=== PATIENT | male | born 1965 | race Caucasian/White ===

== ENCOUNTER 2017-08-28 10:05 | Day surgery (SDC) | payer MEDICARE, OTHER ==
--- NOTE | 2017-08-28 11:09 | PCM.PREANE ---
Preanesthetic Assessment - Anesthesia/Transfusion/Family Hx Anesthesia History: Prior Anesthesia Without Reaction Family History of Anesthesia Reaction: No Transfusion History: No Prior Transfusion(s) - Review of Systems General: No Symptoms Pulmonary: No Symptoms Cardiovascular: No Symptoms Gastrointestinal: Abdominal Pain Neurological: No Symptoms Other: Reports: Diabetes - Physical Assessment NPO Status Date: 08/27/17 NPO Status Time: 00:00 Pulse: 96 O2 Sat by Pulse Oximetry: 99 Respiratory Rate: 18 Blood Pressure: 159/78 Temperature: 36.6 C Vital Signs: Last Vital Signs Temp 36.6 C 08/28/17 10:11 Pulse 96 08/28/17 10:11 Resp 18 08/28/17 10:11 BP 159/78 H 08/28/17 10:11 Pulse Ox 99 08/28/17 10:11 Height: 1.83 m Weight: 93.894 kg ASA Class: 2 Mental Status: Alert & Oriented x3 Airway Class: Mallampati = 1 Dentition: Reports: Normal Dentition, [place](s) Thyro-Mental Finger Breadths: 3 Mouth Opening Finger Breadths: 3 ROM/Head Extension: Full Lungs: Clear to Auscultation, Normal Respiratory Effort Cardiovascular: Regular Rate, Regular Rhythm, No Murmurs - Allergies Allergies/Adverse Reactions: Allergies Allergy/AdvReac Type Severity Reaction Status Date / Time metformin Allergy Diarrhea Verified 08/28/17 10:19 raw vegetable Allergy Shortness Verified 08/28/17 10:19 of Breath - Blood Blood Available: No Product(s) Available: None - Anesthesia Plan Pre-Op Medication Ordered: Beta Arleen Beta Arleen: Metoprolol Med Last Dose Date: 08/27/17 Med Last Dose Time: 07:00 - Acknowledgements Anesthesia Type Planned: MAC Pt an Appropriate Candidate for the Planned Anesthesia: Yes Alternatives and Risks of Anesthesia Discussed w Pt/Guardian: Yes Pt/Guardian Understands and Agrees with Anesthesia Plan: Yes PreAnesthesia Questionnaire Cardiovascular History: Reports: High Cholesterol, Hypertension Gastrointestinal History: Reports: GERD Genitourinary History: Reports: Renal Calculus Musculoskeletal History: Reports: Fracture Neurological History: Reports: Other (See Below) Other Neuro History: 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 Takes medications for this Psychiatric History: Reports: Depression Endocrine/Metabolic History: Reports: Diabetes, Type II Hematologic History: Reports: Other (See Below) Other Hematologic History: Lyme disease - Past Surgical History GI Surgical History: Reports: None Male Surgical History: Reports: None Musculoskeletal Surgical History: Reports: None - SUBSTANCE USE Smoking Status *Q: Never Smoker Recreational Drug Use History: No - HOME MEDS Home Medications: Home Meds Aspirin [Halfprin] 81 mg PO DAILY 08/28/17 [History] Baclofen 10 mg PO TID PRN 08/28/17 [History] Canagliflozin [Invokana] 300 mg PO DAILY 08/28/17 [History] Cetirizine [ZyrTEC] 10 mg PO DAILY 08/28/17 [History] Donepezil HCl [Aricept] 10 mg SL BEDTIME 08/28/17 [History] Escitalopram [Lexapro] 20 mg PO DAILY 08/28/17 [History] Glimepiride [Amaryl] 8 mg PO WITHBREAKFAST 08/28/17 [History] Hydrochlorothiazide 25 mg PO DAILY 08/28/17 [History] Ibuprofen 200 mg PO Q4H PRN 08/28/17 [History] Insulin Glarg,Human.Rec.Analog [Lantus] 10 unit SUBCUT DAILY 08/28/17 [History] Lidocaine 2% [Xylocaine 2% Jelly] 1 applic TOP DAILY PRN 08/28/17 [History] Liraglutide [Victoza 3-Heron] 1.2 mg SQ DAILY 08/28/17 [History] Lisinopril [Prinivil] 20 mg PO DAILY 08/28/17 [History] Mirtazapine [Remeron] 15 mg PO BEDTIME 08/28/17 [History] Multivitamin [Multivitamins] 1 tab PO DAILY 08/28/17 [History] Nitroglycerin [Rectiv] 1 inch BID 08/28/17 [History] Omeprazole 40 mg PO PCBREAKFAST 08/28/17 [History] Rosuvastatin [Crestor] 10 mg PO BEDTIME 08/28/17 [History] Sildenafil [Viagra] 50 mg PO DAILY PRN 08/28/17 [History] Zolpidem [Ambien] 5 mg PO BEDTIME PRN 08/28/17 [History] amLODIPine Besylate [Amlodipine Besylate] 1 tab PO DAILY 08/28/17 [History] traMADol [Ultram] 50 mg PO Q8H PRN 08/28/17 [History]
[2017-08-28] MEDS ORDERED: Midazolam 1 MG/ML 2 ML SDV ONE (11:27)
[2017-08-28] MEDS ORDERED: metroNIDAZOLE/Normal Saline 500 MG in Premix Bag 1 BAG IV SCH (11:27)
[2017-08-28] MEDS ORDERED: cefOXitin 2 GM in Premix Bag 1 BAG IV SCH (11:27)
[2017-08-28] MEDS ORDERED: Ondansetron 4 MG/2 ML SDV ONE (11:27)
[2017-08-28] MEDS ORDERED: Propofol 200 MG/20 ML SDV ONE ×2 (11:27→12:03)
[2017-08-28] MEDS ORDERED: fentaNYL 250 MCG/5 ML SDV ONE (11:28)
[2017-08-28] MEDS ORDERED: Lidocaine 1% 4 ML ONE (11:28)
[2017-08-28] MEDS ORDERED: Metoprolol Tartrate 5 MG/5 ML SDV ONE (11:31)
[2017-08-28] MEDS ORDERED: Ketorolac 30 MG/ML SDV ONE (11:39)
[2017-08-28] MEDS ORDERED: HYDROmorphone 0.5 MG/0.5 ML Syringe ONE (11:39)
[2017-08-28] MEDS ORDERED: Lactated Ringers 1,000 ML IV SCH (11:40)
[2017-08-28] MEDS ORDERED: Lidocaine 1% 30 ML SDV ONE (11:44)
--- NOTE | 2017-08-28 12:18 | PCM.OPNOTE ---
- General Post-Op/Procedure Note Date of Surgery/Procedure: 08/28/17 Operative Procedure(s): I&D minal rectal abscess Pre Op Diagnosis: minal rectal abscess Post-Op Diagnosis: Same Anesthesia Technique: MAC Primary Surgeon: Stefano Zhou EBL in mLs: 10 Complications: None Condition: Good
[2017-08-28] MEDS ORDERED: Lactated Ringers 1,000 ML ONE (12:23)
--- NOTE | 2017-08-28 21:28 | OR ---
DATE OF OPERATION: 08/28/2017 SURGEON: Stefano Zhou MD PREOPERATIVE DIAGNOSIS: Perirectal abscess. POSTOPERATIVE DIAGNOSIS: Perirectal abscess. OPERATION PERFORMED: Incision and drainage under IV sedation. FINDINGS: An abscess that was prominent on the right side posteriorly and extended to the left side posteriorly in a horseshoe fashion. DESCRIPTION OF PROCEDURE: The patient was taken to the operating room, placed in a supine position, connected to monitoring equipment, given IV sedation and antibiotics, placed in lithotomy position. The perianal area was then prepped with Betadine and draped off in a sterile fashion. Induration could be felt in the right posterior perianal skin and the skin was then anesthetized with 1% Xylocaine. An incision was made and pus was entered. Incision was enlarged and index finger was inserted tracing the abscess over to the left posterior area. An additional incision was made in the left posterior incision and the abscess cavity was entered. Gerardo drain was then placed into this cavity entering the left side and exiting the left side and sutured to the skin with 2-0 chromic suture. The patient tolerated the procedure. There was minimal bleeding, approximately 10 mL. The patient was sent to recovery room in a stable condition. ANESTHESIA: ESTIMATED BLOOD LOSS: MMODAL /[id number]
--- NOTE | 2017-08-28 21:32 | HP ---
DATE OF ADMISSION: 08/28/2017 HISTORY OF PRESENT ILLNESS: This is a 52-year-old male who came into Dr. Naylor with onset of pain in mainly the rectal area, some on the left. It has been of 10 days' duration. He was seen in the walk-in clinic because of the severity of the pain and he felt that it was a fissure. He then came in after the weekend to see Dr. Naylor, who diagnosed a perirectal abscess. The patient's pain was mainly on the right side, although noted Dr. Naylor' notes had left in the exam. He had a history of explosive diarrhea. His last colonoscopy last year showed a small polyp. He has had intermittent fever and chills, some nausea with this and he has an uncontrolled diabetes with blood sugars around 280s to 300. CURRENT MEDICATIONS: For medication reconciliation form. PAST MEDICAL HISTORY: Type 2 diabetes, hypertension, and mixed hyperlipidemia. Had a history of Lyme disease in the past and nephrolithiasis. FAMILY HISTORY: His mother has diabetes and father has hypertension. SOCIAL HISTORY: Never smoked and no alcohol use. REVIEW OF SYSTEMS: No chest pain or shortness of breath, cough, hoarseness, wheezing, fainting, weakness, numbness, or convulsions. Does have rectal pain and a little constipation. PHYSICAL EXAMINATION: GENERAL: Reveals a pulse 88, temperature 99, blood pressure is 142/66. HEENT: Eyes; sclerae white. Extraocular muscle motion normal. Oral cavity, healthy mucous membranes with mouth and tongue. NECK: Supple. No nodes. No thyromegaly. ABDOMEN: Soft. No tenderness, guarding, or rebound. EXTREMITIES: Upper and lower extremities, no angulation deformities. RECTUM: Examination of the rectal area shows tenderness in the posterior right area. No digital exam was done because of the pain. PSYCHIATRIC: Normal. SKIN: Normal. NEUROLOGIC: Normal. ASSESSMENT: Perirectal abscess on the right, which is distinct from Dr. Naylor' note. PLAN: For I and D. Discussed this with the patient the risks and the complications. He understands and consents, and will start antibiotics. MMODAL /[id number]
--- NOTE | 2017-08-30 07:28 | HP ---
DATE OF ADMISSION: 08/28/2017 ADDENDUM: The patient has diabetes and history of chills and fevers. He is considered immunocompromised and thus this is an emergency procedure, need to proceed immediately to the operating room for incision and drainage, and we will preop with antibiotics. MMODAL /[id number]
== END 2017-08-28 13:11 | disposition home or self-care (01) ==
LOC: JD.ED 10:05 → JD.SDS 11:32
PROVIDERS: ATTEND Surgery
DX: K61.1 Rectal abscess (principal); I10 Essential (primary) hypertension; E10.9 Type 1 diabetes mellitus without complications; Z88.8 Allergy status to other drugs, medicaments and biological substances; Z79.82 Long term (current) use of aspirin; Z91.018 Allergy to other foods; Z79.4 Long term (current) use of insulin; Z79.899 Other long term (current) drug therapy
CPT/HCPCS: 46040; 82962; J0694; J1170; J1885; J2250; J2405; J3010; J7120; 99285; J2704; J3490

== ENCOUNTER 2017-09-29 14:48 | Emergency (ER) | payer MEDICARE, OTHER ==
--- NOTE | 2017-09-29 15:54 | EDM.PDOC ---
ED HPI GENERAL MEDICAL PROBLEM - General Chief Complaint: General Stated Complaint: ANAL FISSURE INFECTED Time Seen by Provider: 09/29/17 15:01 Source of Information: Reports: Patient, Old Records History Limitations: Reports: No Limitations - History of Present Illness INITIAL COMMENTS - FREE TEXT/NARRATIVE: Medical records indicate that the patient underwent incision and drainage of a right-sided perianal abscess on 08/28/2017, per Dr. Zhou. According to the operative report, the abscess was on the right posterior aspect, but tracked to the left posterior aspect in a "U" shape. An additional incision was made to the left posterior perianal region, and a Bruin drain was placed in the left incision, exiting the right (the operative report indicates that the drain was placed entering the left side and exiting the left side, but this may be a typographical error). The patient states that he followed up with Dr. Zhou yesterday, and all was well. Yesterday afternoon, however, after seeing Dr. Zhou, the patient developed chills and generalized body aches. Today he again has perianal pain and tenderness. Here in the ED, the patient is afebrile. Dr. Ritter of the office today. The patient's PCP is Dr. Keyla Heredia. Rectal Pain Score (Numeric/FACES): 2 - Related Data Allergies Allergy/AdvReac Type Severity Reaction Status Date / Time metformin Allergy Diarrhea Verified 08/28/17 10:19 raw vegetable Allergy Shortness Verified 08/28/17 10:19 of Breath Home Meds: Home Meds Aspirin [Halfprin] 81 mg PO DAILY 08/28/17 [History] Baclofen 10 mg PO TID PRN 08/28/17 [History] Canagliflozin [Invokana] 300 mg PO DAILY 08/28/17 [History] Cetirizine [ZyrTEC] 10 mg PO DAILY 08/28/17 [History] Donepezil HCl [Aricept] 10 mg SL BEDTIME 08/28/17 [History] Escitalopram [Lexapro] 20 mg PO DAILY 08/28/17 [History] Glimepiride [Amaryl] 8 mg PO WITHBREAKFAST 08/28/17 [History] Hydrochlorothiazide 25 mg PO DAILY 08/28/17 [History] Ibuprofen 200 mg PO Q4H PRN 08/28/17 [History] Insulin Glarg,Human.Rec.Analog [Lantus] 10 unit SUBCUT DAILY 08/28/17 [History] Lidocaine 2% [Xylocaine 2% Jelly] 1 applic TOP DAILY PRN 08/28/17 [History] Liraglutide [Victoza 3-Heron] 1.2 mg SQ DAILY 08/28/17 [History] Lisinopril [Prinivil] 20 mg PO DAILY 08/28/17 [History] Mirtazapine [Remeron] 15 mg PO BEDTIME 08/28/17 [History] Multivitamin [Multivitamins] 1 tab PO DAILY 08/28/17 [History] Nitroglycerin [Rectiv] 1 inch BID 08/28/17 [History] Omeprazole 40 mg PO PCBREAKFAST 08/28/17 [History] Rosuvastatin [Crestor] 10 mg PO BEDTIME 08/28/17 [History] Sildenafil [Viagra] 50 mg PO DAILY PRN 08/28/17 [History] Zolpidem [Ambien] 5 mg PO BEDTIME PRN 08/28/17 [History] amLODIPine Besylate [Amlodipine Besylate] 1 tab PO DAILY 08/28/17 [History] traMADol [Ultram] 50 mg PO Q8H PRN 08/28/17 [History] Sulfamethoxazole/Trimethoprim [Bactrim Ds Tablet] 1 tab PO Q12H #20 tablet 09/29 [Rx] metroNIDAZOLE [Flagyl] 1 tab PO Q8H #30 tab 09/29/17 [Rx] Past Medical History Cardiovascular History: Reports: High Cholesterol, Hypertension Gastrointestinal History: Reports: GERD Genitourinary History: Reports: Renal Calculus Musculoskeletal History: Reports: Back Pain, Chronic, Fracture Neurological History: 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 Zhou) Social & Family History - Family History Family Medical History: Noncontributory - Tobacco Use Smoking Status *Q: Never Smoker Second Hand Smoke Exposure: No - Caffeine Use Caffeine Use: Reports: Soda - Alcohol Use Alcohol Use History: Yes Alcohol Use Frequency: Rarely - Recreational Drug Use Recreational Drug Use: No - Living Situation & Occupation Living situation: Reports: , with Spouse Occupation: Unemployed ED ROS GENERAL - Review of Systems Review Of Systems: ROS reveals no pertinent complaints other than HPI. ED EXAM, GENERAL - Physical Exam Exam: See Below Exam Limited By: No Limitations General Appearance: Alert, WD/WN, No Apparent Distress Rectal (Males) Exam: Other (Mild swelling and tenderness with palpable lump to the posterior right perianal area, consistent with a perianal abscess. Prior linear surgical wounds, each measuring approximately 1.5 cm, located at the 4: 00 and 8:00 positions (with the patient in the dorsolithotomy position), appear to be well-healed.) Course - Vital Signs Last Recorded V/S: Last Vital Signs Temp 37.8 C 09/29/17 16:10 Pulse 92 09/29/17 16:10 Resp 16 09/29/17 16:10 BP 147/92 H 09/29/17 16:10 Pulse Ox 97 09/29/17 16:10 - Orders/Labs/Meds Meds: Medications Discontinued Medications Generic Name Dose Route Start Last Admin Trade Name Freq PRN Reason Stop Dose Admin Metronidazole 500 mg 09/29/17 15:58 09/29/17 16:15 Flagyl PO 09/29/17 15:59 500 mg ONETIME ONE Administration Trimethoprim/Sulfamethoxazole 1 tab 09/29/17 15:58 09/29/17 16:15 Septra Ds PO 09/29/17 15:59 1 tab ONETIME ONE Administration - Re-Assessments/Exams Free Text/Narrative Re-Assessment/Exam: 09/29/17 15:[address] Wyatt at 15:50. Because the patient had a negative exam just yesterday, any abscess that has formed is in its earliest stages. He is therefore recommending conservative management with oral Bactrim and Flagyl, and sitz baths. The patient can then follow-up with Dr. Zhou as an outpatient. Departure - Departure Time of Disposition: 15:58 Disposition: Home, Self-Care 01 Condition: Good Clinical Impression: Perianal abscess - Discharge Information Prescriptions: metroNIDAZOLE [Flagyl] 1 tab PO Q8H #30 tab Sulfamethoxazole/Trimethoprim [Bactrim Ds Tablet] 1 tab PO Q12H #20 tablet Instructions: Perianal Abscess Referrals: Stefano Zhou MD [Physician] - Forms: ED Department Discharge Additional Instructions: You were seen in the emergency room for pain to the anal area, following incision and drainage of a perianal abscess on 08/28/2017. On examination, there is a new perianal abscess to the posterior right area. Your case was discussed with the surgeon Dr. Wyatt. He recommended conservative management including antibiotics and sitz baths. You have been started on the antibiotics Bactrim and Flagyl. Prescriptions for Bactrim and Flagyl [facility], located across the [facility] from the hospital. Take one tablet of Bactrim every 12 hours, starting tomorrow morning, 09/30/2017. Take one tablet of Flagyl every 8 hours, starting midnight , 09/29/2017. Finish both antibiotics, even if you are feeling better, unless told otherwise by Dr. Zhou. Perform sitz baths for approximately 15-20 minutes, 3-5 times a day. Take [id number] ibuprofen, 2-3 tablets (400-600 mg) every 8 hours, with food, as needed for discomfort. Follow-up with Dr. Zhou at the next available appointment. If any other problems, please do not hesitate to return to the ER.
[2017-09-29] MEDS ORDERED: Sulfamethoxazole/Trimethoprim 800-160 MG Tab PO ONE (15:58)
[2017-09-29] MEDS ORDERED: metroNIDAZOLE 500 MG Tab PO ONE (15:58)
== END 2017-09-29 16:12 | disposition home or self-care (01) ==
LOC: JD.ED 14:48
DX: K61.0 Anal abscess (principal); E78.00 Pure hypercholesterolemia, unspecified; I10 Essential (primary) hypertension; K21.9 Gastro-esophageal reflux disease without esophagitis; E11.9 Type 2 diabetes mellitus without complications; Z88.8 Allergy status to other drugs, medicaments and biological substances; Z79.82 Long term (current) use of aspirin; Z79.899 Other long term (current) drug therapy; Z79.4 Long term (current) use of insulin
CPT/HCPCS: 99283; A9270

== ENCOUNTER 2018-10-05 22:25 | Emergency (ER) | payer MEDICARE, OTHER ==
[2018-10-05] MEDS ORDERED: Aspirin 81 MG Tab.Chew PO ONE (22:41)
[2018-10-05] MEDS ORDERED: Nitroglycerin 0.4 MG Tab.SL SL PRN (22:45)
--- NOTE | 2018-10-05 22:51 | EDM.PDOC ---
ED HPI GENERAL MEDICAL PROBLEM - General Chief Complaint: Chest Pain Stated Complaint: chest pain Time Seen by Provider: 10/05/18 22:36 Source of Information: Reports: Patient History Limitations: Reports: No Limitations - History of Present Illness INITIAL COMMENTS - FREE TEXT/NARRATIVE: This is a 53-year-old male. He had onset of centralized chest pain this morning around 11:30 AM that is been waxing and waning pretty much all day. Then about 1 hour ago it started getting much more severe going into his jaw and down his left arm. No diaphoresis but he did have some nausea and vomiting secondary to the pain. He comes to the ER for evaluation. He has a history of insulin-dependent diabetes hypertension and hypercholesterolemia. His initial EKG shows an acute inferior IA with mild possible lateral involvement. Mid-Sternal Chest Pain Score (Numeric/FACES): 9 - Related Data Allergies Allergy/AdvReac Type Severity Reaction Status Date / Time metformin Allergy Diarrhea Verified 10/05/18 22:30 raw vegetable Allergy Shortness Verified 10/05/18 22:30 of Breath Home Meds: Home Meds Aspirin [Halfprin] 81 mg PO DAILY 08/28/17 [History] Baclofen 10 mg PO TID PRN 08/28/17 [History] Canagliflozin [Invokana] 300 mg PO DAILY 08/28/17 [History] Cetirizine [ZyrTEC] 10 mg PO DAILY 08/28/17 [History] Donepezil HCl [Aricept] 10 mg SL BEDTIME 08/28/17 [History] Escitalopram [Lexapro] 20 mg PO DAILY 08/28/17 [History] Glimepiride [Amaryl] 8 mg PO WITHBREAKFAST 08/28/17 [History] Ibuprofen 200 - 600 mg PO Q4H PRN 08/28/17 [History] Lisinopril [Prinivil] 20 mg PO DAILY 08/28/17 [History] Mirtazapine [Remeron] 15 mg PO BEDTIME 08/28/17 [History] Omeprazole 40 mg PO PCBREAKFAST 08/28/17 [History] Rosuvastatin [Crestor] 10 mg PO BEDTIME 08/28/17 [History] Sildenafil [Viagra] 50 mg PO DAILY PRN 08/28/17 [History] Zolpidem [Ambien] 5 mg PO BEDTIME PRN 08/28/17 [History] amLODIPine Besylate [Amlodipine Besylate] 10 mg PO DAILY 08/28/17 [History] hydroCHLOROthiazide [Hydrochlorothiazide] 25 mg PO DAILY 08/28/17 [History] Liraglutide [Victoza] 1.8 mg SQ DAILY 10/05/18 [History] Past Medical History Cardiovascular History: Reports: High Cholesterol, Hypertension Gastrointestinal History: Reports: GERD Other Gastrointestinal History: anal fissure surgery Genitourinary History: Reports: Renal Calculus Musculoskeletal History: Reports: Back Pain, Chronic, Fracture Neurological History: 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 Takes medications for this Psychiatric History: Reports: Anxiety, Depression Endocrine/Metabolic History: Reports: Diabetes, Type II Hematologic History: Reports: Other (See Below) (Lyme disease) Other Hematologic History: Lyme disease - Past Surgical History GI Surgical History: Reports: Colonoscopy, Polypectomy Social & Family History - Family History Family Medical History: Noncontributory - Tobacco Use Smoking Status *Q: Never Smoker - Caffeine Use Caffeine Use: Reports: Soda - Recreational Drug Use Recreational Drug Use: No - Living Situation & Occupation Living situation: Reports: , with Spouse Occupation: Unemployed ED ROS GENERAL - Review of Systems Review Of Systems: See Below Constitutional: Denies: Fever, Chills HEENT: Reports: No Symptoms Respiratory: Denies: Shortness of Breath Cardiovascular: Reports: Chest Pain. Denies: Edema Endocrine: Reports: No Symptoms GI/Abdominal: Reports: Nausea, Vomiting. Denies: Abdominal Pain : Reports: No Symptoms Musculoskeletal: Reports: No Symptoms Skin: Reports: No Symptoms Neurological: Reports: No Symptoms Psychiatric: Reports: No Symptoms ED EXAM, GENERAL - Physical Exam Exam: See Below Exam Limited By: No Limitations General Appearance: Alert, WD/WN, Anxious Eye Exam: Bilateral Eye: Normal Inspection Ears: Normal External Exam Nose: Normal Inspection Throat/Mouth: Normal Inspection, Normal Lips, Normal Voice, No Airway Compromise Head: Normocephalic Neck: Supple Respiratory/Chest: No Respiratory Distress, Lungs Clear, Normal Breath Sounds Cardiovascular: Regular Rate, Rhythm, No Murmur GI/Abdominal: Soft, Non-Tender Back Exam: Full Range of Motion Extremities: Normal Inspection, Normal Range of Motion Neurological: Alert, Oriented Psychiatric: Anxious Skin Exam: Warm, Dry EKG INTERPRETATION EKG Date: 10/05/18 Time: 22:59 EKG Interpretation Comments: EKG shows an acute inferior myocardial infarction with possible lateral involvement. Even though the ST elevation is only about 1-1/2 boxes it still is quite clear on the EKG that he's having a STEMI. Course - Vital Signs Last Recorded V/S: Last Vital Signs Temp 97.3 F 10/05/18 22:30 Pulse 81 10/05/18 22:30 Resp 12 10/05/18 22:30 BP 156/103 H 10/05/18 22:48 Pulse Ox 95 10/05/18 22:30 - Orders/Labs/Meds Orders: Active Orders 24 hr Category Date Time Status Chest 1V Frontal [CR] Stat Exams 10/05/18 22:38 Taken CBC W/O DIFF,HEMOGRAM [HEME] MOTH@0700 Lab 10/08/18 07:00 Ordered CBC W/O DIFF,HEMOGRAM [HEME] MOTH@0700 Lab 10/11/18 07:00 Ordered CBC W/O DIFF,HEMOGRAM [HEME] MOTH@0700 Lab 10/15/18 07:00 Ordered CBC W/O DIFF,HEMOGRAM [HEME] MOTH@0700 Lab 10/18/18 07:00 Ordered CBC W/O DIFF,HEMOGRAM [HEME] MOTH@0700 Lab 10/22/18 07:00 Ordered CBC W/O DIFF,HEMOGRAM [HEME] MOTH@0700 Lab 10/25/18 07:00 Ordered Nitroglycerin [Nitrostat] Med 10/05/18 22:45 Active 0.4 mg SL Q5M PRN Sodium Chloride 0.9% [Normal Saline] 1,000 ml Med 10/05/18 23:15 Active IV ASDIRECTED Tenecteplase [Tnkase] Med 10/05/18 23:00 Active 50 mg IV STAT Medication Orders Sodium Chloride (Normal Saline) 1,000 mls @ 100 mls/hr IV ASDIRECTED JENNIFER Last Admin: 10/05/18 23:07 Dose: 100 mls/hr Nitroglycerin (Nitrostat) 0.4 mg SL Q5M PRN PRN Reason: Chest Pain Last Admin: 10/05/18 22:48 Dose: 0.4 mg Tenecteplase (Tnkase) 50 mg IV STAT JENNIFER; Protocol Last Admin: 10/05/18 23:03 Dose: 50 mg Labs: Laboratory Tests 10/05/18 10/05/18 Range/Units 22:43 22:43 WBC 8.12 (4.23-9.07) K/mm3 RBC 6.67 H (4.63-6.08) M/mm3 Hgb 17.9 H (13.7-17.5) gm/L Hct 52.4 H (40.1-51.0) % MCV 78.6 L (79.0-92.2) fl MCH 26.8 (25.7-32.2) pg MCHC 34.2 (32.2-35.5) g/dl RDW Std Deviation 41.0 (35.1-43.9) fL Plt Count 317 (163-337) K/mm3 MPV 9.1 L (9.4-12.3) fl Neutrophils % (Manual) 57 (40-60) % Band Neutrophils % 1 (0-10) % Lymphocytes % (Manual) 32 (20-40) % Atypical Lymphs % 0 % Monocytes % (Manual) 3 (2-10) % Eosinophils % (Manual) 6 (0.8-7.0) % Basophils % (Manual) 1 (0.2-1.2) Platelet Estimate Adequate Plt Morphology Comment Normal Microcytosis 1+ slight RBC Morph Comment Not Reportable Sodium 139 (136-145) mEq/L Potassium 3.6 (3.5-5.1) mEq/L Chloride 102 (98-107) mEq/L Carbon Dioxide 25 (21-32) mEq/L Anion Gap 15.6 H (5-15) BUN 22 H (7-18) mg/dL Creatinine 1.1 (0.7-1.3) mg/dL Est Cr Clr Drug Dosing 86.22 mL/min Estimated GFR (MDRD) > 60 (>60) mL/min BUN/Creatinine Ratio 20.0 H (14-18) Glucose 280 H (74-106) mg/dL Calcium 9.6 (8.5-10.1) mg/dL Total Bilirubin 0.5 (0.2-1.0) mg/dL AST 18 (15-37) U/L ALT 50 (16-63) U/L Alkaline Phosphatase 103 (46-116) U/L CK-MB (CK-2) 2.8 (0-3.6) ng/ml Troponin I 0.193 H* (0.00-0.056) ng/mL Total Protein 7.3 (6.4-8.2) g/dl Albumin 4.1 (3.4-5.0) g/dl Globulin 3.2 gm/dL Albumin/Globulin Ratio 1.3 (1-2) Meds: Medications Generic Name Dose Route Start Last Admin Trade Name Freq PRN Reason Stop Dose Admin Sodium Chloride 1,000 mls @ 100 mls/hr 10/05/18 23:15 10/05/18 23:07 Normal Saline IV 100 mls/hr ASDIRECTED JENNIFER Administration Nitroglycerin 0.4 mg 10/05/18 22:45 10/05/18 22:48 Nitrostat SL 0.4 mg Q5M PRN Administration Chest Pain Tenecteplase 50 mg 10/05/18 23:00 10/05/18 23:03 Tnkase IV 50 mg STAT JENNIFER Administration Protocol Discontinued Medications Generic Name Dose Route Start Last Admin Trade Name Maira PRN Reason Stop Dose Admin Aspirin 324 mg 10/05/18 22:41 10/05/18 22:44 Aspirin PO 10/05/18 22:42 324 mg ONETIME ONE Administration Clopidogrel Bisulfate 600 mg 10/05/18 22:58 10/05/18 23:07 Plavix PO 10/05/18 22:59 600 mg ONETIME ONE Administration Heparin Sodium (Porcine) Confirm 10/05/18 23:03 10/05/18 23:18 Heparin Sodium Administered 10/05/18 23:04 Not Given Dose 5,000 units .ROUTE .STK-MED ONE Heparin Sodium (Porcine) 4,000 units 10/05/18 23:06 10/05/18 23:08 Heparin Sodium IVPUSH 10/05/18 23:07 4,000 units ONETIME ONE Administration Tenecteplase Confirm 10/05/18 22:56 10/05/18 23:09 Tnkase Administered 10/05/18 22:57 Not Given Dose 50 mg .ROUTE .STK-MED ONE - Radiology Interpretation Free Text/Narrative:: Chest x-ray does not show any acute changes - Re-Assessments/Exams Free Text/Narrative Re-Assessment/Exam: 10/05/18 22:[address] Gill at [facility] regarding the inferior IA acute. We will fly the patient to [place]. In the meantime he wants us to give him 600 of Plavix. The nitroglycerin dropped his blood pressure momentarily but is come back up and we will give him the TNKase just prior to him leaving on the helicopter. 10/05/18 23:11 No troponin was available at the time of his discharge with [facility] to fly to [place] [facility] in [facility]. 10/05/18 23:11 Patient has remained stable other than the dip in his blood pressure from the nitroglycerin and it came back immediately. His chest pain was 9 out of 10 initially and after 1 nitroglycerin dropped down to 1 out of 10 and S1 his blood pressure dropped to 88 systolic but within 5 minutes without a fluid bolus was back up to 1:15 systolic. We held the rest of the nitroglycerin dose. 10/05/18 23:21 Initial troponin is 0.193. The patient is packaged to get in the helicopter. The aspirin, Plavix, heparin and the TNKase have all been given. 10/05/18 23:48 The patient left the ER in good spirits and his monitor at this time showed a normal sinus rhythm. Departure - Departure Time of Disposition: 23:00 Disposition: DC/Tfer to Acute Hospital 02 Reason for Transfer *Q: Primary PCI Indicated Condition: Fair Clinical Impression: Acute inferior myocardial infarction Acute myocardial infarction Qualifiers: Myocardial infarction type: ST elevation myocardial infarction Involved coronary artery: unspecified coronary artery Qualified Code(s): I21.3 - ST elevation (STEMI) myocardial infarction of unspecified site Referrals: Keyla Heredia MD [Primary Care Provider] - ED Communication - ED Communication Date/Time Date: 10/05/18 Time Called: 23:01 - Discussed Case With (1) Discussed Case With (1): Admitting Provider Person/s Notified (1): Dr. Gill (He accepts the patient in transport to [place] [facility] ) - My Orders Last 24 Hours: My Active Orders 10/05/18 22:38 Chest 1V Frontal [CR] Stat 10/05/18 22:45 Nitroglycerin [Nitrostat] 0.4 mg SL Q5M PRN 10/05/18 23:00 Tenecteplase [Tnkase] 50 mg IV STAT 10/05/18 23:15 Sodium Chloride 0.9% [Normal Saline] 1,000 ml IV ASDIRECTED 10/08/18 07:00 CBC W/O DIFF,HEMOGRAM [HEME] MOTH@69910/11/18 07:00 CBC W/O DIFF,HEMOGRAM [HEME] MOTH@69910/15/18 07:00 CBC W/O DIFF,HEMOGRAM [HEME] MOTH@69910/18/18 07:00 CBC W/O DIFF,HEMOGRAM [HEME] MOTH@69910/22/18 07:00 CBC W/O DIFF,HEMOGRAM [HEME] MOTH@69910/25/18 07:00 CBC W/O DIFF,HEMOGRAM [HEME] MOTH@699 - Assessment/Plan Last 24 Hours: My Active Orders 10/05/18 22:38 Chest 1V Frontal [CR] Stat 10/05/18 22:45 Nitroglycerin [Nitrostat] 0.4 mg SL Q5M PRN 10/05/18 23:00 Tenecteplase [Tnkase] 50 mg IV STAT 10/05/18 23:15 Sodium Chloride 0.9% [Normal Saline] 1,000 ml IV ASDIRECTED 10/08/18 07:00 CBC W/O DIFF,HEMOGRAM [HEME] MOTH@69910/11/18 07:00 CBC W/O DIFF,HEMOGRAM [HEME] MOTH@69910/15/18 07:00 CBC W/O DIFF,HEMOGRAM [HEME] MOTH@69910/18/18 07:00 CBC W/O DIFF,HEMOGRAM [HEME] MOTH@69910/22/18 07:00 CBC W/O DIFF,HEMOGRAM [HEME] MOTH@69910/25/18 07:00 CBC W/O DIFF,HEMOGRAM [HEME] MOTH@699
[2018-10-05] MEDS ORDERED: Tenecteplase 50 MG Kit ONE (22:56)
[2018-10-05] MEDS ORDERED: Clopidogrel 75 MG Tab PO ONE (22:58)
[2018-10-05] MEDS ORDERED: Tenecteplase 50 MG Kit IV SCH (23:00)
[2018-10-05] MEDS ORDERED: Heparin Sodium 5,000 Units/ML Vial ONE (23:03)
[2018-10-05] MEDS ORDERED: Heparin Sodium 5,000 Units/ML Vial IVPUSH ONE (23:06)
[2018-10-05] MEDS ORDERED: Sodium Chloride 0.9% 1,000 ML IV SCH (23:15)
--- NOTE | 2018-10-09 07:24 | CR ---
Chest: Portable view of the chest was obtained. Comparison: No prior chest x-ray. Heart size is felt to be slightly prominent. Upper mediastinum is normal. Lungs are clear. Bony structures are grossly intact. Impression: 1. Nothing acute is seen on portable chest x-ray. Diagnostic code #2
== END 2018-10-05 23:30 ==
LOC: JD.ED 22:25
DX: I21.19 ST elevation (STEMI) myocardial infarction involving other coronary artery of inferior wall (principal); I10 Essential (primary) hypertension; E78.00 Pure hypercholesterolemia, unspecified; K21.9 Gastro-esophageal reflux disease without esophagitis; F41.9 Anxiety disorder, unspecified; F32.9 Major depressive disorder, single episode, unspecified; E11.9 Type 2 diabetes mellitus without complications; Z79.84 Long term (current) use of oral hypoglycemic drugs; Z79.899 Other long term (current) drug therapy; Z79.82 Long term (current) use of aspirin; Z88.8 Allergy status to other drugs, medicaments and biological substances; Z91.018 Allergy to other foods
CPT/HCPCS: 36415; 71045; 80053; 82553; 84484; 85007; 85027; 96374; 96375; 99285; A9270; J1644; J3101; J7040

== ENCOUNTER 2020-05-18 02:37 | Emergency (ER) | payer MEDICARE, OTHER ==
--- NOTE | 2020-05-18 02:57 | EDM.PDOC ---
ED HPI GENERAL MEDICAL PROBLEM - General Chief Complaint: Chest Pain Stated Complaint: CHEST PAIN AND PRESSURE Time Seen by Provider: 05/18/20 02:50 - History of Present Illness INITIAL COMMENTS - FREE TEXT/NARRATIVE: 55-year-old male presents the emergency room with chest pain. Patient awoke about 40 minutes prior to arrival with nausea and vomiting and noticed he had quite a bit of chest pressure. The patient has a history of a DC about a year and a half ago he had multiple stents placed at that point however that the stents reoccluded and he had to have them redone and he was changed from Plavix to Brilinta. The patient takes a baby aspirin daily. This pain reminds him very much like it did with his initial heart attack. The pain is right-sided and not left-sided. It does not radiate into either arm or up his neck at this time. He has some shortness of breath with it. Right Chest Pain Score (Numeric/FACES): 7 - Related Data Allergies Allergy/AdvReac Type Severity Reaction Status Date / Time metformin Allergy Diarrhea Verified 05/18/20 02:47 raw vegetable Allergy Shortness Verified 05/18/20 02:47 of Breath Home Meds: Home Meds Aspirin [Halfprin] 81 mg PO DAILY 08/28/17 [History] Baclofen 10 mg PO TID PRN 08/28/17 [History] Canagliflozin [Invokana] 300 mg PO DAILY 08/28/17 [History] Cetirizine [ZyrTEC] 10 mg PO DAILY 08/28/17 [History] Donepezil HCl [Aricept] 10 mg SL BEDTIME 08/28/17 [History] Escitalopram [Lexapro] 20 mg PO DAILY 08/28/17 [History] Glimepiride [Amaryl] 8 mg PO WITHBREAKFAST 08/28/17 [History] Omeprazole 40 mg PO PCBREAKFAST 08/28/17 [History] Rosuvastatin [Crestor] 40 mg PO BEDTIME 08/28/17 [History] Zolpidem [Ambien] 5 mg PO BEDTIME PRN 08/28/17 [History] lisinopriL [Prinivil] 20 mg PO DAILY 08/28/17 [History] Insulin Glarg,Human.Rec.Analog [Lantus] 35 unit SUBCUT DAILY 10/19/18 [History] Metoprolol Succinate 25 mg PO DAILY 10/19/18 [History] Montelukast [Singulair] 10 mg PO DAILY 10/19/18 [History] Multivitamin [Multivitamins] 1 each PO DAILY 10/19/18 [History] Mupirocin Oint [Bactroban Oint] 22 gm TP TID PRN 10/19/18 [History] Ondansetron [Zofran] 4 mg PO Q6H PRN 10/19/18 [History] Potassium Chloride [Klor-Con] 20 meq PO DAILY 10/19/18 [History] Ticagrelor [Brilinta] 90 mg PO BID 10/19/18 [History] Past Medical History Cardiovascular History: Reports: High Cholesterol, Hypertension, DC Gastrointestinal History: Reports: GERD Other Gastrointestinal History: anal fissure surgery Genitourinary History: Reports: Renal Calculus Musculoskeletal History: Reports: Back Pain, Chronic, Fracture Neurological History: Reports: Other (See Below) Other Neuro History: 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 Takes medications for this Psychiatric History: Reports: Anxiety, Depression Endocrine/Metabolic History: Reports: Diabetes, Type II Hematologic History: Reports: Other (See Below) Other Hematologic History: Lyme disease - Infectious Disease History Infectious Disease History: Reports: None - Past Surgical History GI Surgical History: Reports: Colonoscopy, Polypectomy Male Surgical History: Reports: None Musculoskeletal Surgical History: Reports: None Social & Family History - Family History Family Medical History: No Pertinent Family History - Tobacco Use Tobacco Use Status *Q: Never Tobacco User Second Hand Smoke Exposure: No - Caffeine Use Caffeine Use: Reports: None - Recreational Drug Use Recreational Drug Use: No - Living Situation & Occupation Living situation: Reports: , with Spouse Occupation: Unemployed ED ROS GENERAL - Review of Systems Review Of Systems: See Below Constitutional: Reports: No Symptoms HEENT: Reports: No Symptoms Respiratory: Reports: No Symptoms Cardiovascular: Reports: Chest Pain Endocrine: Reports: No Symptoms GI/Abdominal: Reports: Nausea, Vomiting : Reports: No Symptoms Musculoskeletal: Reports: No Symptoms Skin: Reports: No Symptoms Neurological: Reports: No Symptoms ED EXAM, GENERAL - Physical Exam Exam: See Below Exam Limited By: No Limitations General Appearance: Alert, No Apparent Distress Head: Atraumatic, Normocephalic Neck: Normal Inspection, Supple, Non-Tender, Full Range of Motion Respiratory/Chest: No Respiratory Distress, Lungs Clear, Normal Breath Sounds, No Accessory Muscle Use Cardiovascular: Regular Rate, Rhythm, No Edema, No Murmur GI/Abdominal: Normal Bowel Sounds, Soft, Non-Tender Back Exam: Normal Inspection. No: CVA Tenderness (L), CVA Tenderness (R) Extremities: Normal Inspection, No Pedal Edema Neurological: Alert, Oriented, Normal Cognition Course - Vital Signs Last Recorded V/S: Last Vital Signs Temp 36.1 C 05/18/20 02:44 Pulse 75 05/18/20 03:15 Resp 16 05/18/20 03:15 BP 133/66 05/18/20 03:16 Pulse Ox 95 05/18/20 03:15 - Orders/Labs/Meds Orders: Active Orders 24 hr Category Date Time Status EKG Documentation Completion [RC] STAT Care 05/18/20 02:53 Active Chest 1V Frontal [CR] Stat Exams 05/18/20 02:57 Taken CORONAVIRUS COVID-19 VIVEK [MOLEC] Stat Lab 05/18/20 03:43 Received Heparin Sodium/D5W [Heparin 25,000 Units in D5W 500 ML] Med 05/18/20 03:45 Active 25,000 units in 500 ml IV TITRATE Nitroglycerin [Nitrostat] Med 05/18/20 03:07 Active 0.4 mg SL Q5M PRN Medication Orders Heparin Sodium/Dextrose (Heparin 25,000 Units In D5w 500 Ml) 25,000 units in 500 mls @ 22.545 mls/hr IV TITRATE JENNIFER; Protocol Last Admin: 05/18/20 03:46 Dose: 12 units/kg/hr, 22.545 mls/hr Documented by: YAMILETH Cosigned by: ЕКАТЕРИНА Nitroglycerin (Nitrostat) 0.4 mg SL Q5M PRN PRN Reason: Chest Pain Last Admin: 05/18/20 03:16 Dose: 0.4 mg Documented by: Admin: 05/18/20 03:12 Dose: 0.4 mg Documented by: YAMILETH Labs: Laboratory Tests 05/18/20 05/18/20 05/18/20 Range/Units 02:50 02:50 02:50 WBC 6.24 (4.23-9.07) K/mm3 RBC 6.13 H (4.63-6.08) M/mm3 Hgb 17.4 (13.7-17.5) gm/dl Hct 50.9 (40.1-51.0) % MCV 83.0 D (79.0-92.2) fl MCH 28.4 (25.7-32.2) pg MCHC 34.2 (32.2-35.5) g/dl RDW Std Deviation 40.2 (35.1-43.9) fL Plt Count 251 (163-337) K/mm3 MPV 9.1 L (9.4-12.3) fl Neut % (Auto) 46.0 (34.0-67.9) % Lymph % (Auto) 38.1 (21.8-53.1) % Coffey % (Auto) 8.3 (5.3-12.2) % Eos % (Auto) 6.7 (0.8-7.0) Baso % (Auto) 0.6 (0.1-1.2) % Neut # (Auto) 2.86 (1.78-5.38) K/mm3 Lymph # (Auto) 2.38 (1.32-3.57) K/mm3 Coffey # (Auto) 0.52 (0.30-0.82) K/mm3 Eos # (Auto) 0.42 (0.04-0.54) K/mm3 Baso # (Auto) 0.04 (0.01-0.08) K/mm3 Manual Slide Review Abnormal smear PT 10.5 (9.7-12.0) SECONDS INR 0.98 Sodium 141 (136-145) mEq/L Potassium 3.6 (3.5-5.1) mEq/L Chloride 104 (98-107) mEq/L Carbon Dioxide 26 (21-32) mEq/L Anion Gap 14.6 (5-15) BUN 21 H (7-18) mg/dL Creatinine 1.1 (0.7-1.3) mg/dL Est Cr Clr Drug Dosing 84.26 mL/min Estimated GFR (MDRD) > 60 (>60) mL/min BUN/Creatinine Ratio 19.1 H (14-18) Glucose 156 H (74-106) mg/dL Calcium 9.3 (8.5-10.1) mg/dL Total Bilirubin 0.8 (0.2-1.0) mg/dL AST 19 (15-37) U/L ALT 51 (16-63) U/L Alkaline Phosphatase 98 (46-116) U/L Troponin I 0.028 (0.00-0.056) ng/mL Total Protein 6.9 (6.4-8.2) g/dl Albumin 3.9 (3.4-5.0) g/dl Globulin 3.0 gm/dL Albumin/Globulin Ratio 1.3 (1-2) Meds: Medications Generic Name Dose Route Start Last Admin Trade Name Freq PRN Reason Stop Dose Admin Heparin Sodium/Dextrose 25,000 units in 500 mls @ 22.545 mls/hr 05/18/20 03:45 05/18/20 03:46 Heparin 25,000 Units In D5w 500 Ml IV 12 units/kg/hr TITRATE JENNIFER 22.545 mls/hr Administration Protocol 12 UNITS/KG/HR Nitroglycerin 0.4 mg 05/18/20 03:07 05/18/20 03:16 Nitrostat SL 0.4 mg Q5M PRN Administration Chest Pain Discontinued Medications Generic Name Dose Route Start Last Admin Trade Name Freq PRN Reason Stop Dose Admin Aspirin 81 mg 05/18/20 03:07 05/18/20 03:11 Aspirin PO 05/18/20 03:08 81 mg ONETIME ONE Administration Heparin Sodium (Porcine) 4,000 units 05/18/20 03:35 05/18/20 03:47 Heparin Sodium IVPUSH 05/18/20 03:36 4,000 units .BOLUS ONE Administration Nitroglycerin Confirm 05/18/20 03:10 05/18/20 03:12 Nitrostat Administered 05/18/20 03:11 Not Given Dose 0.4 mg .ROUTE .STK-MED ONE Nitroglycerin 1 gm 05/18/20 03:21 05/18/20 03:25 Nitro-Bid 2% TOP 05/18/20 03:22 1 gm ONETIME ONE Administration Ondansetron HCl 4 mg 05/18/20 03:34 05/18/20 03:35 Zofran IVPUSH 05/18/20 03:35 4 mg ONETIME ONE Administration - Re-Assessments/Exams Free Text/Narrative Re-Assessment/Exam: 05/18/20 03:33 Patient's troponin is 0.028. He is pain-free after 3 sublingual nitro and was started on Nitropaste. However at this time is now having some nausea and vomiting. I have called [facility] 1 call because he is unstable angina or NSTEMI if his troponin rises. And they will call me back when the hospitalist is available. 05/18/20 03:[address] [facility] [address] Covarrubias did get back to me and agreed with starting heparin and accepted the transfer at 03:35 Departure - Departure Time of Disposition: 03:46 Disposition: DC/Tfer to [facility] 02 Reason for Transfer *Q: Other Clinical Impression: Unstable angina Referrals: Keyla Heredia MD [Primary Care Provider] - Forms: ED Department Discharge Sepsis Event Note (ED) - Evaluation Sepsis Screening Result: No Definite Risk - Focused Exam Vital Signs: Vital Signs Temp Pulse Resp BP BP Pulse Ox 05/18/20 03:16 133/66 05/18/20 03:15 75 16 139/77 95 05/18/20 03:12 163/80 H 05/18/20 02:44 36.1 C 68 16 184/81 H 97 - My Orders Last 24 Hours: My Active Orders 05/18/20 02:53 EKG Documentation Completion [RC] STAT 05/18/20 02:57 Chest 1V Frontal [CR] Stat 05/18/20 03:07 Nitroglycerin [Nitrostat] 0.4 mg SL Q5M PRN 05/18/20 03:43 CORONAVIRUS COVID-19 VIVEK [MOLEC] Stat 05/18/20 03:45 Heparin Sodium/D5W [Heparin 25,000 Units in D5W 500 ML] 25,000 units in 500 ml IV TITRATE - Assessment/Plan Last 24 Hours: My Active Orders 05/18/20 02:53 EKG Documentation Completion [RC] STAT 05/18/20 02:57 Chest 1V Frontal [CR] Stat 05/18/20 03:07 Nitroglycerin [Nitrostat] 0.4 mg SL Q5M PRN 05/18/20 03:43 CORONAVIRUS COVID-19 VIVEK [MOLEC] Stat 05/18/20 03:45 Heparin Sodium/D5W [Heparin 25,000 Units in D5W 500 ML] 25,000 units in 500 ml IV TITRATE
[2020-05-18] MEDS ORDERED: Aspirin 81 MG Tab.Chew PO ONE (03:07)
[2020-05-18] MEDS ORDERED: Nitroglycerin 0.4 MG Tab.SL ONE (03:10)
[2020-05-18] MEDS: Nitroglycerin 0.4 MG Tab.SL SL PRN ×2 (03:12→03:16)
[2020-05-18] MEDS ORDERED: Nitroglycerin 2% Oint 1 GM UD Packet TOP ONE (03:21)
[2020-05-18] MEDS ORDERED: Ondansetron 4 MG/2 ML SDV IVPUSH ONE (03:34)
[2020-05-18] MEDS ORDERED: Heparin Sodium 5,000 Units/ML Vial IVPUSH ONE (03:35)
[2020-05-18] MEDS ORDERED: Heparin Sodium/D5W 25,000 UNITS/500 ML BAG IV SCH (03:45)
--- NOTE | 2020-05-18 08:28 | CR ---
Chest: Portable view of the chest was obtained. Comparison: Prior chest x-ray of 10/05/18. Heart size and mediastinum are within normal limits for portable technique. Lungs are clear with no acute parenchymal change being seen. No gross acute osseous finding is seen. Impression: 1. Nothing acute is seen on portable chest x-ray. Diagnostic code #1
== END 2020-05-18 04:23 ==
LOC: JD.ED 02:37
DX: I20.0 Unstable angina (principal); E78.00 Pure hypercholesterolemia, unspecified; I10 Essential (primary) hypertension; I25.2 Old myocardial infarction; K21.9 Gastro-esophageal reflux disease without esophagitis; F41.9 Anxiety disorder, unspecified; F32.9 Major depressive disorder, single episode, unspecified; E11.9 Type 2 diabetes mellitus without complications; Z88.8 Allergy status to other drugs, medicaments and biological substances; Z91.018 Allergy to other foods; Z79.82 Long term (current) use of aspirin; Z79.899 Other long term (current) drug therapy; Z79.4 Long term (current) use of insulin; Z20.822 Contact with and (suspected) exposure to COVID-19
CPT/HCPCS: 36415; 71045; 80053; 84484; 85025; 85610; 93005; 96365; 96375; 99285; A9270; J1644; J2405; U0002